=== PATIENT | male | born 1960 ===

== ENCOUNTER 2017-12-29 14:29 | Inpatient (IN) | payer OTHER ==
[~2017-12-29] VITALS: Ht 167.6 cm; Wt 103.9 kg
[2017-12-29] MEDS ORDERED: DIOVAN320 MG PO (14:43)
[2017-12-29] MEDS ORDERED: ZYLOPRIM300 MG PO (14:44)
[2017-12-29] MEDS ORDERED: NEXIUM 24HR20 M1 PO (14:44)
[2017-12-29] MEDS ORDERED: CALCI-CHEW500 MG PO (14:44)
[2017-12-29] MEDS ORDERED: VIT C-ROSE HIP500 MG PO (14:45)
== END 2018-01-08 10:07 | disposition home or self-care (01) | DRG 331 ==
LOC: SURH 01-05 07:00 → O/R 01-05 08:48 → SURH 01-05 10:39
PROVIDERS: Colon & Rectal Surgery
PROC: 0WQF4ZZ Repair Abdominal Wall, Percutaneous Endoscopic Approach (ICD-10-PCS; 2018-01-05)
PROC: 4A033R1 Measurement of Arterial Saturation, Peripheral, Percutaneous Approach (ICD-10-PCS; 2018-01-05)
PROC: 4A12X4Z Monitoring of Cardiac Electrical Activity, External Approach (ICD-10-PCS; 2018-01-05)
PROC: 0DTN4ZZ Resection of Sigmoid Colon, Percutaneous Endoscopic Approach (ICD-10-PCS; principal; 2018-01-05 07:00)
DX: K57.32 Diverticulitis of large intestine without perforation or abscess without bleeding (principal); K43.9 Ventral hernia without obstruction or gangrene; I11.9 Hypertensive heart disease without heart failure; E31.21 Multiple endocrine neoplasia [MEN] type I; G47.33 Obstructive sleep apnea (adult) (pediatric); E66.8 Other obesity; D64.89 Other specified anemias

== ENCOUNTER 2019-02-11 06:26 | Day surgery (SDC) | payer OTHER ==
[~2019-02-11 06:26] MED LIST: CALCI-CHEW500 MG PO; DIOVAN320 MG PO; NEXIUM 24HR20 M1 PO; VIT C-ROSE HIP500 MG PO; ZYLOPRIM300 MG PO
== END 2019-02-11 12:05 | disposition home or self-care (01) ==
LOC: AMB-ENDOS 06:26
DX: K57.32 Diverticulitis of large intestine without perforation or abscess without bleeding (principal); K64.1 Second degree hemorrhoids